=== PATIENT | female | born 1945 | race Caucasian/White ===

== ENCOUNTER 2016-07-08 08:51 | Outpatient (CLI) | payer MEDICARE, OTHER | END 2016-07-08 08:52 | disposition home or self-care (01) | DX: E78.2 Mixed hyperlipidemia (principal); Z79.899 Other long term (current) drug therapy ==

== ENCOUNTER 2016-09-16 07:45 | Outpatient (CLI) | payer MEDICARE, OTHER ==
[2016-09-16 11:27] LABS: LDL CHOLESTEROL,DIRECT 83 mg/dL
== END 2016-09-16 07:46 | disposition home or self-care (01) ==
LOC: LAB.F 07:45
PROVIDERS: ATTEND Internal Medicine
DX: E78.2 Mixed hyperlipidemia (principal)
CPT/HCPCS: 36415; 84450; 84460

== ENCOUNTER 2016-11-15 08:53 | Outpatient (CLI) | payer MEDICARE ==
[2016-11-15 19:30] LABS: BASOPHILS % (AUTO) 0.9 %; EOSINOPHILS # (AUTO) 0.1 10^3/uL (0.0-0.7); EOSINOPHILS % (AUTO) 1.8 %; HCT - HEMATOCRIT 40.7 % (37.0-47.0); HGB - HEMOGLOBIN 12.9 g/dL (12.0-16.0); LYMPHOCYTES % (AUTO) 20.3 %; MEAN CORPUSCULAR HEMOGLOBIN 31.3 pg (27.0-31.0); MEAN CORPUSCULAR HGB CONC 31.7 g/dL (32.0-36.0); MEAN CORPUSCULAR VOLUME 98.7 fL (81.0-99.0); MEAN PLATELET VOLUME 9.4 fL (7.9-10.8); MONOCYTES # (AUTO) 0.5 10^3/uL (0.0-1.0); NEUTROPHILS # (AUTO) 3.2 10^3/uL (1.5-6.6); NUCLEATED RED BLOOD CELLS AUTO 0.2 /100WBC; RED BLOOD COUNT 4.13 10^6/uL (4.20-5.40); RED CELL DISTRIBUTION WIDTH 14.7 % (12.0-15.0); UNCORRECTED WHITE BLOOD COUNT 4.9 x10^3/uL; WHITE BLOOD COUNT 4.9 x10^3/uL (4.8-10.8)
[2016-11-15 19:40] LABS: ALBUMIN/GLOBULIN RATIO 1.9 (1.0-2.2); BILIRUBIN,TOTAL 0.5 mg/dL (0.2-1.0); CALCIUM 9.7 mg/dL (8.5-10.3); CREATININE 0.7 mg/dL (0.4-1.0); POTASSIUM 4.4 mmol/L (3.5-5.0); TOTAL PROTEIN 6.6 g/dL (6.7-8.2)
== END 2016-11-15 08:54 | disposition home or self-care (01) ==
LOC: LAB.F 08:53
PROVIDERS: ATTEND Nurse Practitioner Family
DX: K51.50 Left sided colitis without complications (principal)
CPT/HCPCS: 36415; 80053; 85025

== ENCOUNTER 2017-02-22 10:20 | Outpatient (CLI) | payer MEDICARE ==
--- NOTE | 2017-02-22 11:34 | XRAY Report ---
MODIFIED BARIUM SWALLOW: 02/22/2017 CLINICAL INDICATION: Palate abnormality, difficulty chewing. FINDINGS: Various consistencies of barium were prepared and administered in conjunction with Speech Pathology. There is no evidence of penetration or aspiration with any administered consistency. Ple ase also refer to full report from Speech Pathology. IMPRESSION: NO EVIDENCE OF PENETRATION OR ASPIRATION. FLUOROSCOPY TIME: 1 minute, 19 seconds; 1 spot image obtained (cinefluoroscopy recorded). JOB #: [id number] EXT JOB #:[id number]
== END 2017-02-22 10:21 | disposition home or self-care (01) ==
LOC: DI 10:20
PROVIDERS: ATTEND Otolaryngology
DX: M27.8 Other specified diseases of jaws (principal)
CPT/HCPCS: 74230; 92611; G8996; G8997; G8998

== ENCOUNTER 2017-03-30 09:48 | Outpatient (CLI) | payer MEDICARE ==
[2017-03-30 17:49] LABS: BASOPHILS % (AUTO) 0.7 %; EOSINOPHILS # (AUTO) 0.1 10^3/uL (0.0-0.7); EOSINOPHILS % (AUTO) 1.5 %; HCT - HEMATOCRIT 38.5 % (37.0-47.0); HGB - HEMOGLOBIN 12.5 g/dL (12.0-16.0); LYMPHOCYTES # (AUTO) 0.9 10^3/uL (1.5-3.5); LYMPHOCYTES % (AUTO) 16.5 %; MEAN CORPUSCULAR HEMOGLOBIN 31.5 pg (27.0-31.0); MEAN CORPUSCULAR HGB CONC 32.6 g/dL (32.0-36.0); MEAN CORPUSCULAR VOLUME 96.5 fL (81.0-99.0); MEAN PLATELET VOLUME 8.9 fL (7.9-10.8); MONOCYTES # (AUTO) 0.6 10^3/uL (0.0-1.0); MONOCYTES % (AUTO) 10.6 %; NEUTROPHILS # (AUTO) 3.9 10^3/uL (1.5-6.6); NEUTROPHILS % (AUTO) 70.7 %; RED BLOOD COUNT 3.99 10^6/uL (4.20-5.40); UNCORRECTED WHITE BLOOD COUNT 5.5 x10^3/uL; WHITE BLOOD COUNT 5.5 x10^3/uL (4.8-10.8)
[2017-03-30 17:59] LABS: BILIRUBIN,TOTAL 0.8 mg/dL (0.2-1.0); BUN - BLOOD UREA NITROGEN 14 mg/dL (6-20); CALCIUM 9.2 mg/dL (8.5-10.3); CARBON DIOXIDE - CO2 26 mmol/L (21-32); CHLORIDE 100 mmol/L (101-111); CHOL/HDL RATIO 2.3 (<4.4); CHOLESTEROL 174 mg/dL; CREATININE 0.6 mg/dL (0.4-1.0); GFR - MDRD 99 (>89); GLUCOSE 81 mg/dL (70-100); HDL CHOLESTEROL 77 mg/dL; LDL/HDL RATIO 1.1 (<4.4); POTASSIUM 3.9 mmol/L (3.5-5.0); SODIUM 133 mmol/L (135-145); TOTAL PROTEIN 6.5 g/dL (6.7-8.2); TRIGLYCERIDES 66 mg/dL; VLDL CHOLESTEROL 13 mg/dL
[2017-03-30 18:41] LABS: HEMOGLOBIN A1C 0.34 g/dL
== END 2017-03-30 09:49 | disposition home or self-care (01) ==
LOC: LAB.F 09:48
PROVIDERS: ATTEND Internal Medicine
DX: R73.9 Hyperglycemia, unspecified (principal); D12.6 Benign neoplasm of colon, unspecified; E78.5 Hyperlipidemia, unspecified; K51.90 Ulcerative colitis, unspecified, without complications; Z79.899 Other long term (current) drug therapy; Z72.89 Other problems related to lifestyle
CPT/HCPCS: 36415; 80053; 80061; 83036; 84443; 85025; 86803

== ENCOUNTER 2017-04-04 16:01 | Outpatient (CLI) | payer MEDICARE ==
[2017-04-07 15:21] LABS: TEST RESULT REPORT
== END 2017-04-04 16:02 | disposition home or self-care (01) ==
LOC: LAB 16:01
PROVIDERS: ATTEND Internal Medicine
DX: G70.00 Myasthenia gravis without (acute) exacerbation (principal)
CPT/HCPCS: 36415; 81599; 83519

== ENCOUNTER 2017-11-18 08:54 | Outpatient (CLI) | payer MEDICARE ==
[2017-11-18 11:39] LABS: BASOPHILS % (AUTO) 0.7 %; EOSINOPHILS # (AUTO) 0.1 10^3/uL (0.0-0.7); EOSINOPHILS % (AUTO) 1.9 %; HGB - HEMOGLOBIN 12.3 g/dL (12.0-16.0); LYMPHOCYTES # (AUTO) 1.4 10^3/uL (1.5-3.5); LYMPHOCYTES % (AUTO) 22.5 %; MEAN CORPUSCULAR HEMOGLOBIN 32.4 pg (27.0-31.0); MEAN CORPUSCULAR HGB CONC 32.6 g/dL (32.0-36.0); MEAN CORPUSCULAR VOLUME 99.2 fL (81.0-99.0); MONOCYTES # (AUTO) 0.7 10^3/uL (0.0-1.0); MONOCYTES % (AUTO) 10.6 %; NEUTROPHILS % (AUTO) 64.3 %; PLT - PLATELET COUNT 207 10^3/uL (130-450); RED BLOOD COUNT 3.81 10^6/uL (4.20-5.40); RED CELL DISTRIBUTION WIDTH 14.3 % (12.0-15.0); WHITE BLOOD COUNT 6.2 x10^3/uL (4.8-10.8)
[2017-11-18 12:00] LABS: ALBUMIN 3.7 g/dL (3.2-5.5); ALBUMIN/GLOBULIN RATIO 1.7 (1.0-2.2); BILIRUBIN,TOTAL 0.7 mg/dL (0.2-1.0); CALCIUM 9.1 mg/dL (8.5-10.3); CREATININE 0.6 mg/dL (0.4-1.0); TOTAL PROTEIN 5.9 g/dL (6.7-8.2)
== END 2017-11-18 08:55 | disposition home or self-care (01) ==
LOC: LAB.F 08:54
PROVIDERS: ATTEND Internal Medicine Gastroenterology
DX: K51.90 Ulcerative colitis, unspecified, without complications (principal)
CPT/HCPCS: 36415; 80053; 84443; 85025

== ENCOUNTER 2018-05-25 09:06 | Outpatient (CLI) | payer MEDICARE ==
[2018-05-25 18:30] LABS: BASOPHILS % (AUTO) 0.4 %; EOSINOPHILS # (AUTO) 0.1 10^3/uL (0.0-0.7); EOSINOPHILS % (AUTO) 1.1 %; LYMPHOCYTES # (AUTO) 2.6 10^3/uL (1.5-3.5); MEAN CORPUSCULAR HEMOGLOBIN 31.7 pg (27.0-31.0); MEAN CORPUSCULAR HGB CONC 31.8 g/dL (32.0-36.0); MEAN CORPUSCULAR VOLUME 99.7 fL (81.0-99.0); MEAN PLATELET VOLUME 8.7 fL (7.9-10.8); MONOCYTES # (AUTO) 0.8 10^3/uL (0.0-1.0); MONOCYTES % (AUTO) 9.4 %; NEUTROPHILS # (AUTO) 5.1 10^3/uL (1.5-6.6); NEUTROPHILS % (AUTO) 59.1 %; PLT - PLATELET COUNT 214 10^3/uL (130-450); RED BLOOD COUNT 4.09 10^6/uL (4.20-5.40); WHITE BLOOD COUNT 8.6 x10^3/uL (4.8-10.8)
[2018-05-25 18:56] LABS: ALBUMIN 3.8 g/dL (3.2-5.5); ALKALINE PHOSPHATASE 28 IU/L (42-121); ALT ALANINE AMINOTRANSFERASE 14 IU/L (10-60); AST ASPARTATE AMINOTRANSFERASE 19 IU/L (10-42); BILIRUBIN,TOTAL 0.7 mg/dL (0.2-1.0); BUN - BLOOD UREA NITROGEN 17 mg/dL (6-20); CALCIUM 9.3 mg/dL (8.5-10.3); CARBON DIOXIDE - CO2 27 mmol/L (21-32); CHLORIDE 103 mmol/L (101-111); CHOL/HDL RATIO 2.7 (<4.4); CHOLESTEROL 283 mg/dL; CREATININE 0.7 mg/dL (0.4-1.0); GFR - MDRD 82 (>89); GLUCOSE 79 mg/dL (70-100); HDL CHOLESTEROL 106 mg/dL; LDL CHOLESTEROL,CALCULATED 158 mg/dL; LDL/HDL RATIO 1.5 (<4.4); SODIUM 137 mmol/L (135-145); TOTAL PROTEIN 5.7 g/dL (6.7-8.2); VLDL CHOLESTEROL 19 mg/dL
[2018-05-25 19:34] LABS: HB2 TOTAL 13.4 g/dL; HEMOGLOBIN A1C 0.34 g/dL; HEMOGLOBIN A1C % 4.5 % (4.6-6.2)
== END 2018-05-25 09:07 | disposition home or self-care (01) ==
LOC: LAB.F 09:06
PROVIDERS: ATTEND Internal Medicine
DX: R73.9 Hyperglycemia, unspecified (principal); E78.5 Hyperlipidemia, unspecified; K51.90 Ulcerative colitis, unspecified, without complications
CPT/HCPCS: 36415; 80053; 80061; 83036; 83721; 85025

== ENCOUNTER 2018-07-09 17:52 | Emergency (ER) | payer MEDICARE ==
--- NOTE | 2018-07-09 18:16 | ED Physician Documentation ---
PD HPI LOWER EXT INJURY - Stated complaint Stated Complaint: LT LEG SWELL - Chief complaint Chief Complaint: Ext Problem - History obtained from History obtained from: Patient - History of Present Illness PD HPI LOW EXT INJURY LOCATION: Left, Lower leg Type of injury: Other (She has a history of DVT x2, 1 post giving in 1982 and 1 about 10 years ago that was unprovoked. She is not currently anticoagulated. She has 2 days of left leg swelling that is modestly painful but without chest pain or trouble breathing.) Review of Systems Constitutional: reports: Reviewed and negative Throat: reports: Reviewed and negative Cardiac: reports: Reviewed and negative Respiratory: reports: Reviewed and negative PD PAST MEDICAL HISTORY - Present Medications Home Medications: Ambulatory Orders Medication Instructions Recorded Confirmed Rivaroxaban [Xarelto] 15 mg PO BID #42 tablet 07/09/18 Rivaroxaban [Xarelto] 20 mg PO DAILY #30 tablet 07/09/18 - Allergies Allergies/Adverse Reactions: Allergies Allergy/AdvReac Type Severity Reaction Status Date / Time No Known Drug Allergies Allergy Verified 07/09/18 17:58 PD ED PE NORMAL - Vitals Vital signs reviewed: Yes - General General: Alert and oriented X 3, No acute distress - Cardiac Cardiac: RRR, No murmur - Respiratory Respiratory: No respiratory distress, Clear bilaterally - Abdomen Abdomen: Non tender - Extremities Extremities: Other (She has asymmetric swelling of the left leg from mid thigh down without tenderness, good pedal pulses.) - Neuro Neuro: Alert and oriented X 3, Normal speech Results - Vitals Vitals: Vital Signs - 24 hr 07/09/18 17:58 Temperature 36.6 C Heart Rate 115 H Respiratory 16 Rate Blood Pressure 130/86 H O2 Saturation 96 Oxygen O2 Source Room air - Labs Labs: Laboratory Tests 07/09/18 07/09/18 18:30 18:30 WBC 9.3 RBC 4.19 L Hgb 13.2 Hct 41.1 MCV 98.0 MCH 31.4 H MCHC 32.0 RDW 14.0 Plt Count 154 MPV 8.2 Neut # (Auto) 6.9 H Lymph # (Auto) 1.2 L [place] # (Auto) 1.1 H Eos # (Auto) 0.1 Baso # (Auto) 0.1 Absolute Nucleated RBC 0.00 Nucleated RBC % 0.0 Sodium 136 Potassium 4.2 Chloride 104 Carbon Dioxide 25 Anion Gap 7.0 BUN 16 Creatinine 0.8 Estimated GFR (MDRD) 70 L Glucose 111 H Calcium 9.0 Total Bilirubin 1.0 AST 19 ALT 15 Alkaline Phosphatase 29 L Total Protein 6.1 L Albumin 3.7 Globulin 2.4 Albumin/Globulin Ratio 1.5 Lipase 27 PD MEDICAL DECISION MAKING - ED course ED course: This is a 73-year-old woman with an extensive left leg DVT, its recurrent. Discussed with her that she would likely need to be on lifelong anticoagulation at this juncture. We discussed the options of either a Lovenox with a vitamin K antagonist versus 1 of the novel oral anticoagulants. We discussed cost. The opted for the latter and Xarelto was started. Departure - Departure Disposition: Home, Self Care Clinical Impression: Deep vein thrombosis Qualifiers: DVT location: lower extremity Affected thrombotic vein of extremity: femoral Chronicity: acute Laterality: left Qualified Code(s): I82.412 - Acute embolism and thrombosis of left femoral vein Condition: Good Record reviewed to determine appropriate education?: Yes Instructions: DVT Dc Follow-Up: Jarrod Montero MD [Credentialed Staff Provider] - Within 1 week Prescriptions: Rivaroxaban [Xarelto] 15 mg PO BID #42 tablet Rivaroxaban [Xarelto] 20 mg PO DAILY #30 tablet Comments: As discussed, the Xarelto starts it twice a day for 3 weeks. At the 15 mg dose. After that is just once a day but a slightly higher dose pill, 20 mg. Also as discussed, this is an expensive medication. You can get help with prescription assistance through the ethnic origins teacher's website at: [email or web address]
[2018-07-09 18:39] LABS: BASOPHILS # (AUTO) 0.1 10^3/uL (0.0-0.1); BASOPHILS % (AUTO) 0.8 %; EOSINOPHILS # (AUTO) 0.1 10^3/uL (0.0-0.7); EOSINOPHILS % (AUTO) 0.8 %; HGB - HEMOGLOBIN 13.2 g/dL (12.0-16.0); LYMPHOCYTES # (AUTO) 1.2 10^3/uL (1.5-3.5); LYMPHOCYTES % (AUTO) 13.2 %; MEAN CORPUSCULAR HEMOGLOBIN 31.4 pg (27.0-31.0); MEAN PLATELET VOLUME 8.2 fL (7.9-10.8); MONOCYTES # (AUTO) 1.1 10^3/uL (0.0-1.0); MONOCYTES % (AUTO) 11.4 %; NEUTROPHILS # (AUTO) 6.9 10^3/uL (1.5-6.6); NEUTROPHILS % (AUTO) 73.8 %; PLT - PLATELET COUNT 154 10^3/uL (130-450); RED BLOOD COUNT 4.19 10^6/uL (4.20-5.40); WHITE BLOOD COUNT 9.3 x10^3/uL (4.8-10.8)
[2018-07-09 18:51] LABS: ALBUMIN 3.7 g/dL (3.2-5.5); ALBUMIN/GLOBULIN RATIO 1.5 (1.0-2.2); CREATININE 0.8 mg/dL (0.4-1.0); TOTAL PROTEIN 6.1 g/dL (6.7-8.2)
[2018-07-09] MEDS ORDERED: RIVAROXABAN 15 MG TABLET PO STA (19:46)
--- NOTE | 2018-07-09 19:47 | Ultrasound Report ---
Reason: leg swelling Procedure Date: 07/09/2018 Accession Number: [id number] / [id number] Procedure: US - Duplex Ext Veins Left CPT Code: FULL RESULT: EXAM: LEFT LOWER EXTREMITY VENOUS ULTRASOUND. EXAM DATE: 07/09/2018 06:53 PM. CLINICAL HISTORY: Leg swelling. COMPARISON: None. TECHNIQUE: Real-time sonographic vascular imaging was performed by the consulting business developer through the lower extremity utilizing both color-flow and Doppler spectral analysis. Multiple solar sales representative and assessor static images were saved for review. FINDINGS: Common Femoral Vein (CFV): Occluded. CFV-GSV Junction: Occluded. Profunda Femoral Vein (PFV): Normal. Femoral Vein (FV) Prox: Occluded. Femoral Vein (FV) Mid: Occluded. Femoral Vein (FV) Dist: Occluded. Popliteal Vein: Nonocclusive thrombus. Posterior Tibial Veins: Occluded. Peroneal Veins: Not well visualized. Contralateral Side CFV: Normal. Other: None. IMPRESSION: Extensive left lower extremity deep venous thrombosis. RADIA
[2018-07-09 19:53] VITALS: BP 123/79
== END 2018-07-09 20:13 | disposition home or self-care (01) ==
LOC: ED 17:52
DX: I82.412 Acute embolism and thrombosis of left femoral vein (principal); I82.432 Acute embolism and thrombosis of left popliteal vein
CPT/HCPCS: 36415; 80053; 83690; 85025; 93971; 99283; 99284; A9270

== ENCOUNTER 2019-06-05 08:27 | Outpatient (CLI) | payer MEDICARE ==
[2019-06-05 10:01] LABS: BASOPHILS # (AUTO) 0.1 10^3/uL (0.0-0.1); BASOPHILS % (AUTO) 0.8 %; EOSINOPHILS # (AUTO) 0.1 10^3/uL (0.0-0.7); EOSINOPHILS % (AUTO) 0.9 %; HGB - HEMOGLOBIN 12.2 g/dL (12.0-16.0); LYMPHOCYTES % (AUTO) 26.7 %; MEAN CORPUSCULAR HEMOGLOBIN 30.7 pg (27.0-31.0); MEAN CORPUSCULAR HGB CONC 30.1 g/dL (32.0-36.0); MEAN CORPUSCULAR VOLUME 101.8 fL (81.0-99.0); MONOCYTES # (AUTO) 0.9 10^3/uL (0.0-1.0); MONOCYTES % (AUTO) 11.8 %; NEUTROPHILS # (AUTO) 4.4 10^3/uL (1.5-6.6); NEUTROPHILS % (AUTO) 59.1 %; PLT - PLATELET COUNT 214 10^3/uL (130-450); RED BLOOD COUNT 3.98 10^6/uL (4.20-5.40); RED CELL DISTRIBUTION WIDTH 13.5 % (12.0-15.0); WHITE BLOOD COUNT 7.5 x10^3/uL (4.8-10.8)
[2019-06-05 10:40] LABS: HB2 TOTAL 12.2 g/dL; HEMOGLOBIN A1C 0.45 g/dL; HEMOGLOBIN A1C % 5.5 % (4.6-6.2)
[2019-06-05 10:41] LABS: ALBUMIN 3.8 g/dL (3.2-5.5); ALBUMIN/GLOBULIN RATIO 1.7 (1.0-2.2); ALKALINE PHOSPHATASE 23 IU/L (42-121); ALT ALANINE AMINOTRANSFERASE 13 IU/L (10-60); AST ASPARTATE AMINOTRANSFERASE 19 IU/L (10-42); BILIRUBIN,TOTAL 0.6 mg/dL (0.2-1.0); BUN - BLOOD UREA NITROGEN 20 mg/dL (6-20); CALCIUM 8.9 mg/dL (8.5-10.3); CARBON DIOXIDE - CO2 26 mmol/L (21-32); CHLORIDE 106 mmol/L (101-111); CHOL/HDL RATIO 2.9 (<4.4); CHOLESTEROL 279 mg/dL; CREATININE 0.8 mg/dL (0.4-1.0); GFR - MDRD 70 (>89); GLUCOSE 100 mg/dL (70-100); HDL CHOLESTEROL 96 mg/dL; LDL CHOLESTEROL,CALCULATED 156 mg/dL; LDL/HDL RATIO 1.6 (<4.4); SODIUM 138 mmol/L (135-145); TOTAL PROTEIN 6.1 g/dL (6.7-8.2); VLDL CHOLESTEROL 27 mg/dL
== END 2019-06-05 08:28 | disposition home or self-care (01) ==
LOC: LAB.S 08:27
PROVIDERS: ATTEND Physician Assistant Medical
DX: Z51.81 Encounter for therapeutic drug level monitoring (principal); E78.5 Hyperlipidemia, unspecified; M81.0 Age-related osteoporosis without current pathological fracture; Z79.01 Long term (current) use of anticoagulants; R73.02 Impaired glucose tolerance (oral)
CPT/HCPCS: 36415; 80053; 80061; 82306; 83036; 83721; 85025

== ENCOUNTER 2020-07-07 10:02 | Outpatient (CLI) | payer MEDICARE ==
--- NOTE | 2020-07-08 12:52 | Mammography Report ---
BILATERAL DIGITAL SCREENING MAMMOGRAM 3D/2D: 07/07/2020 CLINICAL: Routine screening. Comparison is made to exams dated: 03/07/2015 mammogram and 01/30/2013 mammogram - Merged with [facility]. The tissue of both breasts is heterogeneously dense. This may lower the sensitivity of m ammography. No significant masses, calcifications, or other findings are seen in either breast. There has been no significant interval change. IMPRESSION: NEGATIVE There is no mammographic evidence of malignancy. A 1 year screening mammogram is recommended. This exam was interpreted at Station ID: [id number]. NOTE: For mammograms, a report in lay terms will be sent to the patient. Approximately 15% of breast malignancies will not be visualized mammographically. In the management of a palpable breast mass, a negative mammogram must not discourage biopsy of a clinically suspicious lesion. Electronically Signed By: Florencio Adan M.D. aty/penrad:07/07/2020 10:42:43 ACR BI-RADS Category 1: Negative 3341F PARENCHYMAL PATTERN: (D) - The breast(s) demonstrate(s) heterogeneously dense fibroglandular beltran jones. BI-RADS CATEGORY: (1) - 1 RECOMMENDATION: (ANNUAL) - Recommend routine annual screening mammography. [id number] 1 year screening LATERALITY: (B)
== END 2020-07-07 10:03 | disposition home or self-care (01) ==
LOC: DI.S 10:02
PROVIDERS: ATTEND Registered Nurse
DX: Z12.31 Encounter for screening mammogram for malignant neoplasm of breast (principal)

== ENCOUNTER 2020-10-15 08:20 | Outpatient (CLI) | payer MEDICARE ==
[2020-10-15 14:55] LABS: BASOPHILS # (AUTO) 0.1 10^3/uL (0.0-0.1); BASOPHILS % (AUTO) 0.9 %; EOSINOPHILS # (AUTO) 0.1 10^3/uL (0.0-0.7); EOSINOPHILS % (AUTO) 0.9 %; HCT - HEMATOCRIT 40.8 % (37.0-47.0); HGB - HEMOGLOBIN 12.6 g/dL (12.0-16.0); LYMPHOCYTES # (AUTO) 1.8 10^3/uL (1.5-3.5); LYMPHOCYTES % (AUTO) 22.4 %; MEAN CORPUSCULAR HEMOGLOBIN 31.8 pg (27.0-31.0); MEAN CORPUSCULAR HGB CONC 30.9 g/dL (32.0-36.0); MEAN PLATELET VOLUME 10.8 fL (7.9-10.8); MONOCYTES # (AUTO) 0.9 10^3/uL (0.0-1.0); MONOCYTES % (AUTO) 10.8 %; NEUTROPHILS # (AUTO) 5.2 10^3/uL (1.5-6.6); NEUTROPHILS % (AUTO) 64.3 %; PLT - PLATELET COUNT 210 10^3/uL (130-450); RED BLOOD COUNT 3.96 10^6/uL (4.20-5.40); WHITE BLOOD COUNT 8.1 x10^3/uL (4.8-10.8)
[2020-10-15 15:39] LABS: ALBUMIN 4.1 g/dL (3.2-5.5); ALKALINE PHOSPHATASE 28 IU/L (42-121); ALT ALANINE AMINOTRANSFERASE 12 IU/L (10-60); AST ASPARTATE AMINOTRANSFERASE 17 IU/L (10-42); BILIRUBIN,TOTAL 0.6 mg/dL (0.2-1.0); BUN - BLOOD UREA NITROGEN 17 mg/dL (6-20); CALCIUM 9.9 mg/dL (8.5-10.3); CARBON DIOXIDE - CO2 28 mmol/L (21-32); CHLORIDE 104 mmol/L (101-111); CHOL/HDL RATIO 3.2 (<4.4); CHOLESTEROL 307 mg/dL; CREATININE 0.8 mg/dL (0.4-1.0); GFR - MDRD 70 (>89); GLUCOSE 92 mg/dL (70-100); HDL CHOLESTEROL 97 mg/dL; LDL CHOLESTEROL,CALCULATED 192 mg/dL; POTASSIUM 3.8 mmol/L (3.5-5.0); SODIUM 141 mmol/L (135-145); TOTAL PROTEIN 6.2 g/dL (6.7-8.2); TRIGLYCERIDES 90 mg/dL; VLDL CHOLESTEROL 18 mg/dL
[2020-10-15 15:53] LABS: THYROID STIMULATING HORMONE 2.13 uIU/mL (0.34-5.60)
[2020-10-16 12:33] LABS: HEPATITIS C ANTIBODY NON-REACTIVE (NON-REACTIVE)
== END 2020-10-15 08:21 | disposition home or self-care (01) ==
LOC: LAB.S 08:20
PROVIDERS: ATTEND Registered Nurse
DX: Z01.84 Encounter for antibody response examination (principal); E78.5 Hyperlipidemia, unspecified; I10 Essential (primary) hypertension; Z79.01 Long term (current) use of anticoagulants; R73.02 Impaired glucose tolerance (oral)
CPT/HCPCS: 36415; 80053; 80061; 83721; 84443; 85025; 86803

== ENCOUNTER 2021-03-05 13:26 | Emergency (ER) | payer MEDICARE ==
--- NOTE | 2021-03-05 14:14 | ED Physician Documentation ---
History of Present Illness - Stated complaint Stated Complaint: C+, COUGH,SOA - Chief complaint Chief Complaint: General - Additonal information Additional information: 75-year-old female presents the emergency department requesting Mab infusion. She has had cough and congestion for about 3 days. She did obtain an outpatient PCR result yesterday that was positive for COVID-19 that she presents here requesting Mab. Unfortunately because her test was done at an outside facility we cannot except the results. She has no history of hypertension or diabetes. No tobacco use. Based on age however and the duration of symptoms she would be a candidate for Mab therapy. She denies any dyspnea or chest pain. She is fully vaccinated for COVID-19 though she received her vaccines in April and May respectively of 2020. She has not received a booster Review of Systems Constitutional: reports: Myalgias. denies: Fever, Chills Eyes: reports: Reviewed and negative Ears: reports: Reviewed and negative Nose: reports: Reviewed and negative Throat: reports: Reviewed and negative Cardiac: denies: Chest pain / pressure, Palpitations Respiratory: reports: Cough. denies: Dyspnea GI: reports: Reviewed and negative : reports: Reviewed and negative PD PAST MEDICAL HISTORY - Past Medical History Cardiovascular: Deep vein thrombosis, Other GI: Colon polyps, Hemorrhoids, Diverticulitis, Ulcerative colitis, Crohn's disease - Past Surgical History General: Colonoscopy - Present Medications Home Medications: Ambulatory Orders Medication Instructions Recorded Confirmed Rivaroxaban [Xarelto] 15 mg PO BID #42 tablet 07/09/18 03/05/21 Alendronate [Fosamax] 70 mg PO DAILY 03/05/21 03/05/21 Amox/Clav 875/125 [Augmentin] 1 each PO Q12H #14 tablet 03/05/21 Azithromycin [Zithromax] 0 mg PO DAILY #6 tablet 03/05/21 Lisinopril [Zestril] 10 mg PO DAILY 03/05/21 03/05/21 Omeprazole Magnesium 20 mg PO DAILY 03/05/21 03/05/21 carvediloL [Coreg] 3.125 mg PO BID 03/05/21 03/05/21 predniSONE [Deltasone] 10 mg PO DAILY 03/05/21 03/05/21 - Allergies Allergies/Adverse Reactions: Allergies Allergy/AdvReac Type Severity Reaction Status Date / Time No Known Drug Allergies Allergy Verified 03/05/21 13:57 - Social History Does the pt smoke?: No Smoking Status: Never smoker Does the pt have substance abuse?: No PD ED PE NORMAL - HEENT HEENT: PERRL - Neck Neck: Supple, no meningeal sign - Cardiac Cardiac: RRR, No murmur - Respiratory Respiratory: Clear bilaterally - Abdomen Abdomen: Normal bowel sounds, Soft, Non tender, Non distended - Back Back: No CVA TTP, No spinal TTP - Derm Derm: Normal color, Warm and dry, No rash - Extremities Extremities: No deformity - Neuro Neuro: Alert and oriented X 3 Results - Vitals Vitals: Vital Signs - 24 hr 03/05/21 03/05/21 13:55 15:56 Temperature 36.8 C 36.3 C L Heart Rate 78 80 Respiratory 18 16 Rate Blood Pressure 146/83 H 145/105 H O2 Saturation 96 96 Oxygen O2 Source Room air - EKG (time done) 1503 Compare to prior EKG: Old EKG unavailable - Labs Labs: Laboratory Tests 03/05/21 14:00 Nasal Adenovirus (PCR) NOT DETECTED Nasal B. parapertussis DNA (PCR) NOT DETECTED Nasal Coronavir 229E PCR NOT DETECTED Nasal Coronavir HKU1 PCR NOT DETECTED Nasal Coronavir NL63 PCR NOT DETECTED Nasal Coronavir OC43 PCR NOT DETECTED Nasal Enterovir/Rhinovir PCR NOT DETECTED Nasal Influenza B PCR NOT DETECTED Nasal Influenza A PCR NOT DETECTED Nasal Parainfluen 1 PCR NOT DETECTED Nasal Parainfluen 2 PCR NOT DETECTED Nasal Parainfluen 3 PCR NOT DETECTED Nasal Parainfluen 4 PCR NOT DETECTED Nasal RSV (PCR) NOT DETECTED Nasal B.pertussis DNA PCR NOT DETECTED Nasal C.pneumoniae (PCR) NOT DETECTED Renaldo Human Metapneumo PCR NOT DETECTED Nasal M.pneumoniae (PCR) NOT DETECTED Nasal SARS-CoV-2 (PCR) DETECTED A - Rads (name of study) CXR Radiology: Final report received (Patchy indistinct peripheral airspace opacities with basilar predominance suggestive of COVID-19 pneumonia. Mild blunting the left costophrenic angle compared patible small pleural effusion. Findings suggestive of COPD) PD MEDICAL DECISION MAKING - ED course Complexity details: reviewed results, re-evaluated patient, d/w patient ED course: 75-year-old female presents to the emergency department requesting monoclonal antibody infusion. She is fully vaccinated for COVID-19 in April and May 2020. However over the last 3 to 4 days she has developed some mild cough and congestion. She had an outpatient test yesterday is positive for COVID-19. Here she presents appearing very well. No hypoxia or tachypnea. Room air saturations are 98%. She does have unremarkable cardiopulmonary exam with full pulmonary excursion. Chest x-ray is suggestive of patchy opacities in the basilar area suggestive of COVID-19 pneumonia. Her respiratory PCR is positive that she did receive monoclonal antibody therapy today. Given the findings of the pneumonia prescription for Augmentin, azithromycin as well as Tessalon Perles will be sent to the pharmacy. Emergent return precautions were otherwise discussed. Mab therapy for this patient with Covid was considered and discussed with the patient. The patient was provided the handout: ``Casirivimab plus Imdevimab Fact Sheet for Patients, Parents and Caregivers, and the information within was discussed with the patient. The patient was informed of alternatives prior to receiving Mab therapy. The patient was informed that these medications are unapproved drugs that are authorized for use under Emergency Use Authorization by the FDA. The patient will be monitored for at least 1 hour after infusion is complete. Departure - Departure Disposition: 01 Home, Self Care Clinical Impression: Pneumonia due to COVID-19 virus Condition: Stable Record reviewed to determine appropriate education?: Yes Follow-Up: Kalani Loving ARNP [Primary Care Provider] - Prescriptions: Amox/Clav 875/125 [Augmentin] 1 each PO Q12H #14 tablet Azithromycin [Zithromax] 0 mg PO DAILY #6 tablet Comments: Haley you are seen today in the emergency department to receive monoclonal antibody infusion as you recently tested positive for COVID-19. You have received that infusion today. Your chest x-ray suggest some mild pneumonia in the lower bases of your lungs. Please fill the prescription for the Augmentin and azithromycin. This prescription has been sent to the [facility] in [place]. We do recommend most people with COVID-19 sleep on their belly. Is important he stay well-hydrated and drink plenty of fluids. If at any point you are having worsening symptoms, develop any chest pain, shortness of air or have oxygen levels less than 90% then please return immediately to the ER for reevaluation. I do recommend that you get a COVID-19 booster shot. This can be given 90 days after receiving a monoclonal antibody infusion.
--- NOTE | 2021-03-05 15:03 | XRAY Report ---
PROCEDURE: Chest 1 View X-Ray INDICATIONS: ? covid pna TECHNIQUE: One view of the chest was acquired. COMPARISON: None. FINDINGS: Surgical changes and devices: None. Lungs and pleura: There are a few patchy indistinct peripheral airspace opacities with a basilar pre dominance. Mild blunting of the left costophrenic angle is present suggestive of a smaller pleural ef fusion. There is hyperinflation of the lungs with mild flattening of the hemidiaphragms suggestive of COPD. Mediastinum: Mediastinal contours appear normal. Heart size is normal. Bones and chest wall: No suspicious bony lesions. Overlying soft tissues appear unremarkable. IMPRESSION: 1. Patchy indistinct peripheral airspace opacities with a basilar predominance suggestive of Covid 19 pneumonia. 2. Mild blunting of the left costophrenic angle compatible with a small pleural effusion. 3. Findings suggestive of COPD. Reviewed by: Chris Reyes MD on 03/05/2021 3:02 PM PST Approved by: Chris Reyes MD on 03/05/2021 3:02 PM PST Station ID: [id number]
[2021-03-05 15:09] LABS: CORONAVIRUS 229E-RESP PCR NOT DETECTED; CORONAVIRUS HKU1-RESP PCR NOT DETECTED; CORONAVIRUS NL63-RESP PCR NOT DETECTED; CORONAVIRUS OC43-RESP PCR NOT DETECTED
[2021-03-05 15:11] LABS: B. PARAPERTUSSIS- RESP PCR PAN NOT DETECTED; B. PERTUSSIS- RESP PCR PANEL NOT DETECTED; C. PNEUMONIAE- RESP PCR PANEL NOT DETECTED; HUMAN METAPNEUMOVIRUS NOT DETECTED; INFLUENZA A- RESP PCR PANEL NOT DETECTED; INFLUENZA B - RESP PCR PANEL NOT DETECTED; M. PNEUMONIAE- RESP PCR PANEL NOT DETECTED; PARAINFLUENZA VIRUS 1 NOT DETECTED; PARAINFLUENZA VIRUS 2 NOT DETECTED; PARAINFLUENZA VIRUS 3 NOT DETECTED; PARAINFLUENZA VIRUS 4 NOT DETECTED; RHINOVIRUS/ENTEROVIRUS NOT DETECTED; RSV- RESP PCR PANEL NOT DETECTED; SARS-CoV-2 -RESP PCR PANEL DETECTED
[2021-03-05] MEDS ORDERED: CASIRIVIMAB/IMDEVIMAB 10 ML in SODIUM CHLORIDE 0.9% 50 ML IV ONE (16:00)
[2021-03-05 17:25] VITALS: BP 152/79
== END 2021-03-05 17:30 | disposition home or self-care (01) ==
LOC: ED 13:26
DX: U07.1 COVID-19 (principal); J12.82 Pneumonia due to coronavirus disease 2019; Z79.01 Long term (current) use of anticoagulants
CPT/HCPCS: 71045; 87631; 99283; 99284; J7040; M0243; Q0244; 0202U

== ENCOUNTER 2022-01-25 13:10 | Outpatient (CLI) | payer MEDICARE ==
[2022-01-25 19:50] LABS: BASOPHILS # (AUTO) 0.1 10^3/uL (0.0-0.1); BASOPHILS % (AUTO) 0.5 %; EOSINOPHILS # (AUTO) 0.1 10^3/uL (0.0-0.7); EOSINOPHILS % (AUTO) 0.6 %; HCT - HEMATOCRIT 39.5 % (37.0-47.0); HGB - HEMOGLOBIN 12.3 g/dL (12.0-16.0); LYMPHOCYTES # (AUTO) 0.8 10^3/uL (1.5-3.5); LYMPHOCYTES % (AUTO) 8.6 %; MEAN CORPUSCULAR HEMOGLOBIN 31.9 pg (27.0-31.0); MEAN CORPUSCULAR HGB CONC 31.1 g/dL (32.0-36.0); MEAN CORPUSCULAR VOLUME 102.3 fL (81.0-99.0); MEAN PLATELET VOLUME 11.7 fL (7.9-10.8); MONOCYTES # (AUTO) 0.8 10^3/uL (0.0-1.0); NEUTROPHILS # (AUTO) 7.7 10^3/uL (1.5-6.6); NEUTROPHILS % (AUTO) 81.7 %; PLT - PLATELET COUNT 222 10^3/uL (130-450); RED BLOOD COUNT 3.86 10^6/uL (4.20-5.40); WHITE BLOOD COUNT 9.4 x10^3/uL (4.8-10.8)
[2022-01-25 20:07] LABS: ALBUMIN 3.8 g/dL (3.2-5.5); ALBUMIN/GLOBULIN RATIO 1.7 (1.0-2.2); ALKALINE PHOSPHATASE 23 IU/L (42-121); ALT ALANINE AMINOTRANSFERASE 13 IU/L (10-60); AST ASPARTATE AMINOTRANSFERASE 19 IU/L (10-42); BILIRUBIN,TOTAL 0.6 mg/dL (0.2-1.0); BUN - BLOOD UREA NITROGEN 19 mg/dL (6-20); CALCIUM 10.2 mg/dL (8.5-10.3); CARBON DIOXIDE - CO2 28 mmol/L (21-32); CHLORIDE 105 mmol/L (101-111); CHOL/HDL RATIO 3.4 (<4.4); CHOLESTEROL 288 mg/dL; CREATININE 1.1 mg/dL (0.4-1.0); GFR - MDRD 48 (>89); GLUCOSE 110 mg/dL (70-100); HDL CHOLESTEROL 84 mg/dL; LDL CHOLESTEROL,CALCULATED 180 mg/dL; LDL/HDL RATIO 2.1 (<4.4); POTASSIUM 4.2 mmol/L (3.5-5.0); SODIUM 140 mmol/L (135-145); TOTAL PROTEIN 6.1 g/dL (6.7-8.2); TRIGLYCERIDES 122 mg/dL; VLDL CHOLESTEROL 24 mg/dL
[2022-01-25 20:17] LABS: THYROID STIMULATING HORMONE 1.76 uIU/mL (0.34-5.60)
== END 2022-01-25 13:11 | disposition home or self-care (01) ==
LOC: LAB.S 13:10
PROVIDERS: ATTEND Registered Nurse
DX: Z00.00 Encounter for general adult medical examination without abnormal findings (principal); I10 Essential (primary) hypertension; E78.5 Hyperlipidemia, unspecified; Z51.81 Encounter for therapeutic drug level monitoring; Z79.01 Long term (current) use of anticoagulants; Z79.899 Other long term (current) drug therapy
CPT/HCPCS: 36415; 80053; 80061; 83721; 84443; 85025

== ENCOUNTER 2023-05-31 13:19 | Outpatient (CLI) | payer MEDICARE ==
[2023-05-31 20:09] LABS: CALCIUM 10.1 mg/dL (8.5-10.3); CREATININE 0.9 mg/dL (0.6-1.3); POTASSIUM 4.7 mmol/L (3.5-4.5)
== END 2023-05-31 13:20 | disposition home or self-care (01) ==
LOC: LAB.S 13:19
PROVIDERS: ATTEND Registered Nurse
DX: N18.30 Chronic kidney disease, stage 3 unspecified (principal)
CPT/HCPCS: 36415; 80048